=== PATIENT | female | born 1955 | race Caucasian/White ===

== ENCOUNTER 2018-07-29 09:01 | Observation (INO) ==
[2018-07-29] MEDS: MethylPREDNISolone Sod Succinate Inj 40 MG/ML Vial IV.PUSH SCH ×3 (15:02→23:25)
--- NOTE | 2018-07-29 15:43 | P.HPIM ---
History of Present Illness Primary Care Physician: UNKNOWN History of Present Illness: This patient is a 63-year-old female with a diagnosis of dyslipidemia. The patient was seen at a walk-in clinic approximately 2 weeks ago with complaints of shortness of breath and wheezing. She says she was given Augmentin and then discharge patient symptoms did not improve. Over the past few days have been continuously got worse and she presented to [facility] emergency department for evaluation. On physical examination the patient was found to be hypoxic and had a significant amount of wheezing. She was placed on supplemental oxygen and started on treatment for possible COPD exacerbation. Patient denies any chest pain, no abdominal pain, no diarrhea, no fevers or chills. She has a cough however it is nonproductive. There are no other complaints from the patient. Past medical history dyslipidemia, the patient says she gets spasms in her neck which cause a headache which is well tolerated with Soma. Past surgical history the patient had her gallbladder removed, had a total hysterectomy. She has also had a breast reduction in the past. Family history noncontributory Social history the patient has a history of smoking tobacco half pack per day on and off for 30 years. She denies any history of alcohol or drug use. [facility] - History History Provided By: Patient - Medical History Medical History: Medical History (Last Updated 07/29/18 @ 09:57 by Beatriz Hall RN) Hx of hysterectomy Migraine Pancreatitis - Surgical History Surgical History: Surgical History (Last Reviewed 07/29/18 @ 09:57 by Beatriz Hall RN) History of surgical removal of ganglion cyst Hx of breast reduction, elective Hx of cholecystectomy - Tobacco History Second Hand Smoke Exposure: Yes Tobacco Use In Past 30 Days: No Smoking Status: Former smoker - Alcohol History How Often Do You Have a Drink Containing Alcohol: 2 to 3 times a week - Substance Use History Substance History: No History of Abuse - Travel History Recent Travel in the [place] Within the Last 8 Weeks: No Recent Travel Out of the Country Within the Last 8 Weeks: No Medications and Allergies Active Medications: Active Medications Albuterol (Duoneb Neb (Teresita)) 1 ampul NEB Q4HR WHILE AWAKE NEB TERESITA Atorvastatin Calcium (Lipitor) 20 mg PO HS TERESITA Carisoprodol (Soma) 250 mg PO Q8H PRN PRN Reason: SPASM Methylprednisolone Sodium Succinate (Solumedrol Inj) 40 mg IV.PUSH Q6H TERESITA Last Admin: 07/29/18 15:02 Dose: Not Given Allergies Allergy/AdvReac Type Severity Reaction Status Date / Time cilastatin [From Primaxin IV] Allergy Severe Hives Verified 07/29/18 09:11 imipenem [From Primaxin IV] Allergy Severe Hives Verified 07/29/18 09:11 azithromycin Allergy Mild Hives Verified 07/29/18 09:11 levofloxacin Allergy Mild Hives Verified 07/29/18 09:11 amoxicillin [From Augmentin] Allergy Diarrhea Verified 07/29/18 09:11 clavulanic acid Allergy Diarrhea Verified 07/29/18 09:11 [From Augmentin] Home Medications Medication Instructions Recorded Confirmed Type buspirone 5 mg PO BID 07/29/18 07/29/18 History butalbital-acetaminophen 1 tab PO Q4H PRN 07/29/18 07/29/18 History carisoprodol [Soma] 250 mg PO QID PRN 07/29/18 07/29/18 History rosuvastatin [Crestor] 5 mg PO HS 07/29/18 07/29/18 History Exam Vital signs: Vital Signs 07/29/18 12:00 Temperature 97.9 F Pulse Rate 107 H Respiratory Rate 18 Blood Pressure 138/69 Pulse Oximetry 95 Intake & Output 07/28/18 07/29/18 07/29/18 18:59 06:59 18:59 Weight 61.7 kg Other: Date of Last Bowel Movement 07/29/18 Weight On Admission 61.7 kg Narrative: General patient complains of some shortness of breath. She also has a cough, nonproductive. HEENT extraocular movements are intact, clear oropharyngeal mucosa Cardiovascular S1-S2 audible, RRR, no murmurs rubs or gallops Respiratory wheezing and rhonchi auscultated bilaterally. Abdomen soft, nontender, nondistended, normal bowel sounds Extremities no edema 2+ distal pulses in bilateral upper and lower extremities Neuro there are no neurological deficits. The patient was all 4 extremities and sensation is intact bilaterally. Caprini VTE Risk Assessment Caprini VTE Risk Assessment: Moderate/High Risk (score >= 2) Caprini Risk Assessment Model: Point Value = 1 Point Value = 2 Point Value = 3 Point Value = 5 Age 41-60 Minor surgery BMI > 25 kg/m2 Swollen legs Varicose veins or History of unexplained or recurrent spontaneous Oral contraceptives or hormone replacement Sepsis (< 1 month) Serious lung disease, including pneumonia (< 1 month) Abnormal pulmonary function Acute myocardial infarction Congestive heart failure (< 1 month) History of inflammatory bowel disease Medical patient at bed rest Age 61-74 Arthroscopic surgery Major open surgery (> 45 min) Laparoscopic surgery (> 45 min) Malignancy Confined to bed (> 72 hours) Immobilizing plaster cast Central venous access Age >= 75 History of VTE Family history of VTE Factor V Leiden Prothrombin [id number] Lupus anticoagulant Anticardiolipin antibodies Elevated serum homocysteine Heparin-induced thrombocytopenia Other congenital or acquired thrombophilia Stroke (< 1 month) Elective arthroplasty Hip, pelvis, or leg fracture Acute spinal cord injury (< 1 month) Prophylaxis Regimen: Total Risk Factor Score Risk Level Prophylaxis Regimen 0-1 Low Early ambulation 2 Moderate Order ONE of the following: *Sequential Compression Device (SCD) *Heparin 5000 units SQ BID 3-4 Higher Order ONE of the following medications: *Heparin 5000 units SQ TID *Enoxaparin/Lovenox 40 mg SQ daily (WT < 150 kg, CrCl > 30 mL/min) *Enoxaparin/Lovenox 30 mg SQ daily (WT < 150 kg, CrCl > 10-29 mL/min) *Enoxaparin/Lovenox 30 mg SQ BID (WT < 150 kg, CrCl > 30 mL/min) AND/OR *Sequential Compression Device (SCD) 5 or more Highest Order ONE of the following medications: *Heparin 5000 units SQ TID (Preferred with Epidurals) *Enoxaparin/Lovenox 40 mg SQ daily (WT < 150 kg, CrCl > 30 mL/min) *Enoxaparin/Lovenox 30 mg SQ daily (WT < 150 kg, CrCl > 10-29 mL/min) *Enoxaparin/Lovenox 30 mg SQ BID (WT < 150 kg, CrCl > 30 mL/min) AND *Sequential Compression Device (SCD) Assessment and Plan - Plan This patient is a 63-year-old female with a diagnosis of dyslipidemia. The patient was seen at a walk-in clinic approximately 2 weeks ago with complaints of shortness of breath and wheezing. She says she was given Augmentin and then discharge patient symptoms did not improve. Over the past few days have been continuously got worse and she presented to [facility] emergency department for evaluation. On physical examination the patient was found to be hypoxic and had a significant amount of wheezing. She was placed on supplemental oxygen and started on treatment for possible COPD exacerbation. 1. Shortness of breath possibly COPD exacerbation The patient presented with the symptoms mentioned above. On physical examination she has wheezing bilaterally, she also has rhonchi bilaterally. Chest x-ray is negative for any infiltrates. WBC count was slightly elevated at [facility] ER at 11.5. No fevers or chills. Patient started on IV Solu-Medrol and DuoNeb treatments [id number]. Patient has multiple antibiotic allergies. She will be started on doxycycline. Currently she is on supplemental oxygen of 1 L. If not needed we will attempt to titrate the patient off supplemental oxygen. Keep O2 saturations above 92%. Patient does not have any history of known COPD or asthma. 2. Dyslipidemia Continue Crestor 3. Muscle spasms Patient combines of neck pain that causes headaches and has been on and off issue. She says she takes Soma will be continued throughout the hospitalization. DVT prophylaxis, patient will be started on Lovenox. H&P: Quality - VTE Deep Vein Thrombosis/Pulmonary Embolism Present on Admission: No
[2018-07-29] MEDS: Butalbital/APAP/Caff 50/325/40 MG Tablet PO PRN ×2 (16:10→23:23)
[2018-07-29] MEDS: Carisoprodol 350 MG Tablet PO PRN (16:11)
[2018-07-29] MEDS: guaiFENesin/Dextromethorphan 200 MG/20 MG 10 ML UDC PO PRN (20:33)
[2018-07-30] MEDS: Carisoprodol 350 MG Tablet PO PRN ×3 (00:41→17:07)
[2018-07-30] MEDS: MethylPREDNISolone Sod Succinate Inj 40 MG/ML Vial IV.PUSH SCH ×3 (05:38→17:07)
[2018-07-30] MEDS: guaiFENesin/Dextromethorphan 200 MG/20 MG 10 ML UDC PO PRN ×3 (06:14→22:01)
[2018-07-30 07:10] LABS: Baso % (Auto) 0.1 % (0.0-2.0); Eos % (Auto) 0.1 % (0.0-4.0); Hematocrit 35.8 % (35.0-46.0); Lymph # (Auto) 0.5 th/mm3 (1.0-4.8); Lymph % (Auto) 5.5 % (9.0-44.0); Mean Corpuscular HGB Conc 33.4 % (32.0-36.0); Mean Corpuscular Hemoglobin 31.8 pg (27.0-34.0); Mean Corpuscular Volume 95.2 fL (80.0-100.0); Mean Platelet Volume 6.9 fL (7.0-11.0); Mono # (Auto) 0.2 th/mm3 (0.0-0.9); Mono % (Auto) 1.7 % (0.0-8.0); Neut # (Auto) 8.5 th/mm3 (1.8-7.7); Neut % (Auto) 92.6 % (16.0-70.0); Platelet Count 303 th/mm3 (150-450); Red Blood Count 3.76 mil/mm3 (4.00-5.30); Red Cell Distribution Width 12.7 % (11.6-17.2); White Blood Count 9.2 th/mm3 (4.0-11.0)
[2018-07-30 07:17] LABS: Potassium 3.7 meq/L (3.5-5.1)
[2018-07-30 07:22] LABS: Calcium 8.9 mg/dL (8.5-10.1); Carbon Dioxide 20.9 meq/L (21.0-32.0)
[2018-07-30] MEDS: Butalbital/APAP/Caff 50/325/40 MG Tablet PO PRN ×2 (08:01→17:06)
[2018-07-30] MEDS: Enoxaparin Inj 40 MG/0.4 ML Syringe SQ SCH (08:02)
--- NOTE | 2018-07-30 12:37 | P.PNIM ---
Subjective Interval history: Patient complains of some shortness of breath and cough but improved from yesterday. She is also anxious about her daughter who she says is out of control lately. Physical Exam Vital signs: Vital Signs 07/29/18 15:59 07/29/18 16:00 07/29/18 18:17 Temperature 97.1 F L Pulse Rate 109 H 105 H Respiratory Rate 17 24 Blood Pressure 114/73 Pulse Oximetry 94 L 93 L 95 07/29/18 19:48 07/29/18 20:00 07/30/18 00:00 Temperature 97.2 F L 98.3 F Pulse Rate 110 H 111 H 105 H Respiratory Rate 20 17 18 Blood Pressure 114/60 111/65 Pulse Oximetry 94 L 92 L 92 L 07/30/18 07:13 07/30/18 08:00 07/30/18 11:18 Temperature 96.9 F L Pulse Rate 96 H 105 H 103 H Respiratory Rate 18 20 18 Blood Pressure 125/75 Pulse Oximetry 96 96 96 Intake & Output 07/29/18 07/30/18 07/30/18 18:59 06:59 18:59 Intake Total 350 / 350 100 / 100 Balance 350 / 350 100 / 100 Weight 61.7 kg 62.3 kg Intake: IV 100 / 100 100 / 100 Doxy 100 Inj 100 MG In NS Inj 100 / 100 100 / 100 100 ML @ 100 mls/hr IV.SIG Q12H JUAN RAMON Rx#:[id number] Oral 250 / 250 Other: # Voids 2 3 Date of Last Bowel Movement 07/29/18 Weight On Admission 61.7 kg Narrative: General patient complains of some shortness of breath, improved from yesterday. She also has a cough, nonproductive. HEENT extraocular movements are intact, clear oropharyngeal mucosa Cardiovascular S1-S2 audible, RRR, no murmurs rubs or gallops Respiratory wheezing and rhonchi auscultated bilaterally. Abdomen soft, nontender, nondistended, normal bowel sounds Extremities no edema 2+ distal pulses in bilateral upper and lower extremities Neuro there are no neurological deficits. The patient was all 4 extremities and sensation is intact bilaterally. Results - Labs CBC & Chem 7: 07/30/18 06:50 07/30/18 06:50 Laboratory Results - last 24 hr 07/30/18 07/30/18 06:50 06:50 CBC w Diff Auto diff final WBC 9.2 RBC 3.76 L Hgb 12.0 Hct 35.8 MCV 95.2 MCH 31.8 MCHC 33.4 RDW 12.7 Plt Count 303 MPV 6.9 L Neut % (Auto) 92.6 H Lymph % (Auto) 5.5 L [place] % (Auto) 1.7 Eos % (Auto) 0.1 Baso % (Auto) 0.1 Neut # (Auto) 8.5 H Lymph # (Auto) 0.5 L [place] # (Auto) 0.2 Eos # (Auto) 0.0 Baso # (Auto) 0.0 WBC Differential . Differential Comment . Sodium 144 Potassium 3.7 Chloride 110 H Carbon Dioxide 20.9 L Anion Gap 13 BUN 9 Creatinine 0.78 Estimated GFR 75 L Random Glucose 162 H Calcium 8.9 Magnesium 2.0 D Assessment and Plan - Plan This patient is a 63-year-old female with a diagnosis of dyslipidemia. The patient was seen at a walk-in clinic approximately 2 weeks ago with complaints of shortness of breath and wheezing. She says she was given Augmentin and then discharge patient symptoms did not improve. Over the past few days have been continuously got worse and she presented to [place] emergency department for evaluation. On physical examination the patient was found to be hypoxic and had a significant amount of wheezing. She was placed on supplemental oxygen and started on treatment for possible COPD exacerbation. 1. Shortness of breath possibly COPD exacerbation Was evaluated this morning. She still has complaints of shortness of breath as well as wheezing and rhonchi on auscultation. No significant change in the plan for today. We will continue the patient on IV steroids, breathing treatments [id number], and antibiotics. Chest x-ray did not show any significant findings concerning for infiltrates. No fevers or chills overnight. We will continue supplemental oxygen as needed. 2. Dyslipidemia Continue Crestor 3. Muscle spasms Patient combines of neck pain that causes headaches and has been on and off issue. She says she takes Soma will be continued throughout the hospitalization. DVT prophylaxis, patient will be started on Lovenox.
[2018-07-31] MEDS: MethylPREDNISolone Sod Succinate Inj 40 MG/ML Vial IV.PUSH SCH ×2 (01:19→05:28)
[2018-07-31] MEDS: Carisoprodol 350 MG Tablet PO PRN (05:37)
[2018-07-31] MEDS: Butalbital/APAP/Caff 50/325/40 MG Tablet PO PRN (05:39)
--- NOTE | 2018-07-31 08:49 | P.PNIM ---
Subjective Interval history: Patient says she feels much better today. She is looking forward to being discharged. There are no other complaints from the patient. Physical Exam Vital signs: Vital Signs 07/30/18 11:18 07/30/18 12:00 07/30/18 15:08 Temperature 96.4 F L Pulse Rate 103 H 121 H 91 H Respiratory Rate 18 16 18 Blood Pressure 125/70 Pulse Oximetry 96 92 L 07/30/18 16:00 07/30/18 19:35 07/30/18 20:00 Temperature 97.2 F L 97.1 F L Pulse Rate 104 H 99 H 101 H Respiratory Rate 20 18 18 Blood Pressure 122/79 115/59 L Pulse Oximetry 97 98 95 07/31/18 00:00 Temperature 97.5 F L Pulse Rate 99 H Respiratory Rate 18 Blood Pressure 116/60 Pulse Oximetry 97 Intake & Output 07/30/18 07/31/18 07/31/18 18:59 06:59 18:59 Intake Total 1482 / 1482 300 / 300 Output Total 950 / 950 Balance 1482 / 1482 -650 / -650 Weight 65 kg Intake: IV 200 / 200 Doxy 100 Inj 100 MG In NS Inj 200 / 200 100 ML @ 100 mls/hr IV.SIG Q12H JUAN RAMON Rx#:[id number] Oral 1282 / 1282 100 / 100 Other 200 / 200 Output: Urine 950 / 950 Other: Other Intake Source Saline Solution # Voids 6 Narrative: General patient in no acute distress HEENT extraocular movements are intact, clear oropharyngeal mucosa, no JVD Cardiovascular S1-S2 audible, RRR, no murmurs rubs or gallops Respiratory mild rhonchi bilaterally, significantly improved from admission Abdomen soft, nontender, nondistended, normal bowel sounds Extremities no edema 2+ distal pulses in bilateral upper and lower extremities Neuro cranial nerves II through XII intact Results - Labs CBC & Chem 7: 07/30/18 06:50 07/30/18 06:50 Assessment and Plan - Plan This patient is a 63-year-old female with a diagnosis of dyslipidemia. The patient was seen at a walk-in clinic approximately 2 weeks ago with complaints of shortness of breath and wheezing. She says she was given Augmentin and then discharge patient symptoms did not improve. Over the past few days have been continuously got worse and she presented to [place] emergency department for evaluation. On physical examination the patient was found to be hypoxic and had a significant amount of wheezing. She was placed on supplemental oxygen and started on treatment for possible COPD exacerbation. 1. Shortness of breath possibly COPD exacerbation Patient was evaluated this morning. She says she feels much better than when she was first admitted. Wheezing on physical examination has improved. Chest x-ray did not show any infiltrates on admission. No fevers or chills Patient was titrated off of supplemental oxygen. She will be discharged home today with p.o. doxycycline, prednisone taper, she has an albuterol inhaler at home already. Symbicort will also be started on discharge. I recommended the patient follow-up outpatient with her primary care doctor. She should also have outpatient pulmonary function testing done. Patient wants to go home and she is stable and ready for discharge today. 2. Dyslipidemia Continue Crestor 3. Muscle spasms Patient can continue her home medications for muscle spasms. 4. Anxiety Patient is having some family issues at home involving her daughter and her boyfriend. The patient is currently on buspirone for anxiety which she can continue to take.
[2018-07-31 09:17] VITALS: BP 125/68; RESP 20; TEMP 96.7; O2SAT 93
[2018-07-31] MEDS: Enoxaparin Inj 40 MG/0.4 ML Syringe SQ SCH (09:17)
[2018-07-31 17:32] VITALS: PULSE 105
== END 2018-07-31 10:34 | disposition home or self-care (01) ==
LOC: PHEDDLT 09:01 → PH3 09:01
PROVIDERS: ADMIT Hospitalist; ATTEND Hospitalist